=== PATIENT | female | born 1990 | race African-American/Black ===

== ENCOUNTER 2021-07-06 06:29 | Emergency (ER) | payer MEDICAID, OTHER ==
[~2021-07-06] VITALS: Ht 180.3 cm; Wt 146.0 kg
[2021-07-06 06:36] VITALS: BP 146/94
[2021-07-06] MEDS ORDERED: MAGNESIUM/ALUMINUM HYDROXIDE/SIMETHICONE 30ML UDC PO STA (09:04)
[2021-07-06] MEDS ORDERED: METOCLOPRAMIDE HCL 10MG/2ML VIAL IV STA (09:04)
[2021-07-06] MEDS ORDERED: FAMOTIDINE 20MG/2ML VIAL IV STA (09:04)
[2021-07-06] MEDS ORDERED: SODIUM CHLORIDE 0.9% 1,000 ML IV ONE (09:15)
[2021-07-06 09:55] LABS: HEMATOCRIT. 33.8 % (36.0-48.0); HEMOGLOBIN. 11.3 g/dL (12.0-16.0); MEAN CORPUSCULAR HEMOGLOBIN 27.8 pg (28.0-32.0); MEAN CORPUSCULAR VOLUME 83.2 fL (81.0-99.0); MEAN PLATELET VOLUME 8.3 fl (7.4-10.4); PLATELET 358 x1000/uL (130-400); RED BLOOD CELL COUNT 4.05 mill/uL (4.2-5.4); RED CELL DISTRIBUTION WIDTH 14.5 % (11.6-14.6)
[2021-07-06 09:56] LABS: CHLORIDE 109 mEq/L (98-107)
[2021-07-06 10:00] LABS: CLARITY URINE TURBID (CLEAR); COLOR URINE DK YELLOW (YELLOW); KETONES URINE 4+ (NEGATIVE); LEUKOCYTE ESTERASE URINE 1+ (NEGATIVE); NITRITE URINE NEGATIVE (NEGATIVE); OCCULT BLOOD URINE NEGATIVE (NEGATIVE); PROTEIN URINE 2+ (NEGATIVE); SPECIFIC GRAVITY URINE 1.034 (1.005-1.030); UROBILINOGEN URINE 0.2 E.U./dL (0.2-1.0)
[2021-07-06 10:02] LABS: INR 1.1; PROTHROMBIN TIME 11.7 sec (9.6-11.0)
[2021-07-06 10:39] LABS: PLATELET ESTIMATE NORMAL
[2021-07-06] MEDS ORDERED: DOXY1TAB3 MT (11:39)
== END 2021-07-06 12:09 | disposition home or self-care (01) ==
LOC: ER 06:29
DX: O21.0 Mild hyperemesis gravidarum (principal); O26.891 Other specified pregnancy related conditions, first trimester; R10.13 Epigastric pain; Z3A.08 8 weeks gestation of pregnancy
CPT/HCPCS: 36415; 76801; 76817; 80053; 81003; 81025; 83690; 85025; 85610; 96361; 96374; 96375; 99284; J2765; J3490; J7030

== ENCOUNTER 2021-07-09 08:04 | Emergency (ER) | payer MEDICAID ==
[~2021-07-09] VITALS: Ht 180.3 cm; Wt 136.0 kg
[~2021-07-09 08:04] MED LIST: DOXY1TAB3 MT
[2021-07-09] MEDS ORDERED: ONDANSETRON HCL 4MG/2ML INJ IV ONE (08:30)
[2021-07-09] MEDS ORDERED: SODIUM CHLORIDE 0.9% 1,000 ML IV ONE (08:30)
[2021-07-09 08:50] LABS: BASOPHILS % 0.3 % (0.0-2.0); EOSINOPHILS % 0.4 % (0.0-5.0); HEMATOCRIT. 35.4 % (36.0-48.0); HEMOGLOBIN. 11.9 g/dL (12.0-16.0); MEAN CORPUSCULAR HEMOGLOBIN 27.8 pg (28.0-32.0); MEAN CORPUSCULAR VOLUME 82.8 fL (81.0-99.0); MEAN PLATELET VOLUME 8.2 fl (7.4-10.4); MONOCYTES % 6.3 % (2.0-8.0); PLATELET 312 x1000/uL (130-400); RED BLOOD CELL COUNT 4.28 mill/uL (4.2-5.4)
[2021-07-09 08:56] LABS: CHLORIDE 103 mEq/L (98-107)
[2021-07-09] MEDS ORDERED: POTASSIUM CHLORIDE 20MEQ TABLET SR PO ONE (09:15)
[2021-07-09 09:29] LABS: B-HCG QUANTITATIVE 94479 mIU/mL (<3)
[2021-07-09 10:28] VITALS: BP 135/89
[2021-07-09] MEDS ORDERED: METOCLOPRAMIDE HCL 10MG/2ML VIAL IV ONE (10:45)
[2021-07-09] MEDS ORDERED: ONDA4TAB11 PO (10:46)
== END 2021-07-09 11:35 | disposition home or self-care (01) ==
LOC: ER 08:04
DX: O21.1 Hyperemesis gravidarum with metabolic disturbance (principal); O26.891 Other specified pregnancy related conditions, first trimester; R03.0 Elevated blood-pressure reading, without diagnosis of hypertension; Z3A.09 9 weeks gestation of pregnancy
CPT/HCPCS: 36415; 76801; 76817; 80053; 84702; 85025; 86850; 86900; 86901; 96361; 96374; 96375; 99284; J2405; J2765; J7030

== ENCOUNTER 2021-07-24 19:08 | Emergency (ER) | payer MEDICAID ==
[~2021-07-24] VITALS: Ht 180.3 cm; Wt 146.2 kg
[~2021-07-24 19:08] MED LIST changes: +ONDA4TAB11 PO
[2021-07-24] MEDS ORDERED: ONDANSETRON HCL 4MG/2ML INJ IV STA (20:41)
[2021-07-24] MEDS ORDERED: METOCLOPRAMIDE HCL 10MG/2ML VIAL IV STA (20:41)
[2021-07-24] MEDS ORDERED: SODIUM CHLORIDE 0.9% 1,000 ML IV ONE (20:45)
[2021-07-24 21:26] LABS: BASOPHILS % 0.4 % (0.0-2.0); EOSINOPHILS % 0.7 % (0.0-5.0); HEMATOCRIT. 35.8 % (36.0-48.0); HEMOGLOBIN. 12.1 g/dL (12.0-16.0); MEAN CORPUSCULAR HEMOGLOBIN 28.5 pg (28.0-32.0); MEAN CORPUSCULAR VOLUME 84.1 fL (81.0-99.0); MEAN PLATELET VOLUME 7.7 fl (7.4-10.4); MONOCYTES % 9.6 % (2.0-8.0); NEUTROPHILS % 72.3 % (40.0-76.0); PLATELET 329 x1000/uL (130-400); RED BLOOD CELL COUNT 4.25 mill/uL (4.2-5.4); RED CELL DISTRIBUTION WIDTH 14.2 % (11.6-14.6)
[2021-07-24 21:29] LABS: CHLORIDE 107 mEq/L (98-107)
[2021-07-24 22:52] LABS: CLARITY URINE CLOUDY (CLEAR); COLOR URINE DARK YELLOW (YELLOW); KETONES URINE 4+ (NEGATIVE); LEUKOCYTE ESTERASE URINE 1+ (NEGATIVE); NITRITE URINE POSITIVE (NEGATIVE); OCCULT BLOOD URINE NEGATIVE (NEGATIVE); PH URINE 5.5 (4.5-8.0); PROTEIN URINE 2+ (NEGATIVE); SPECIFIC GRAVITY URINE 1.029 (1.005-1.030)
[2021-07-24] MEDS ORDERED: DOXY1TAB3 MT (22:58)
[2021-07-24] MEDS ORDERED: ONDA4TAB11 PO (22:58)
[2021-07-24] MEDS ORDERED: CEPHALEXIN 250MG CAPSULE PO ONE (23:00)
[2021-07-24] MEDS ORDERED: CEPH500C2 MT (23:01)
[2021-07-24 23:20] VITALS: BP 135/86
== END 2021-07-24 23:32 | disposition home or self-care (01) ==
LOC: ER 19:08
DX: O21.0 Mild hyperemesis gravidarum (principal); Z3A.12 12 weeks gestation of pregnancy
CPT/HCPCS: 36415; 80053; 81003; 83690; 85025; 87077; 87086; 87186; 93005; 96361; 96374; 96375; 99284; J2405; J2765; J7030

== ENCOUNTER 2021-08-15 08:43 | Emergency (ER) | payer MEDICAID ==
[~2021-08-15] VITALS: Ht 180.3 cm; Wt 136.0 kg
[~2021-08-15 08:43] MED LIST changes: +CEPH500C2 MT
[2021-08-15] MEDS ORDERED: METOCLOPRAMIDE HCL 10MG/2ML VIAL IV ONE (10:45)
[2021-08-15] MEDS ORDERED: SODIUM CHLORIDE 0.9% 1,000 ML IV ONE (10:45)
[2021-08-15 11:05] LABS: HEMATOCRIT. 35.2 % (36.0-48.0); HEMOGLOBIN. 11.6 g/dL (12.0-16.0); MEAN CORPUSCULAR HEMOGLOBIN 28.5 pg (28.0-32.0); MEAN CORPUSCULAR VOLUME 86.3 fL (81.0-99.0); MEAN PLATELET VOLUME 7.4 fl (7.4-10.4); PLATELET 300 x1000/uL (130-400); RED BLOOD CELL COUNT 4.08 mill/uL (4.2-5.4); RED CELL DISTRIBUTION WIDTH 14.2 % (11.6-14.6)
[2021-08-15 11:13] LABS: CHLORIDE 107 mEq/L (98-107)
[2021-08-15 11:25] LABS: PLATELET ESTIMATE NORMAL
[2021-08-15 11:30] LABS: CLARITY URINE CLEAR (CLEAR); COLOR URINE YELLOW (YELLOW); KETONES URINE 4+ (NEGATIVE); LEUKOCYTE ESTERASE URINE NEGATIVE (NEGATIVE); NITRITE URINE NEGATIVE (NEGATIVE); OCCULT BLOOD URINE NEGATIVE (NEGATIVE); PH URINE 5.5 (4.5-8.0); PROTEIN URINE 1+ (NEGATIVE); SPECIFIC GRAVITY URINE 1.033 (1.005-1.030)
[2021-08-15 11:57] LABS: *AMPHETAMINES SCREEN URINE NEGATIVE (NEGATIVE); *BARBITURATES SCREEN URINE NEGATIVE (NEGATIVE); *BENZODIAZEPINES SCREEN URINE NEGATIVE (NEGATIVE); *COCAINE SCREEN URINE NEGATIVE (NEGATIVE); METHADONE URINE SCREEN NEGATIVE (NEGATIVE); OPIATES URINE SCREEN NEGATIVE (NEGATIVE)
[2021-08-15 11:58] LABS: PHENCYCLIDINE URINE SCREEN NEGATIVE (NEGATIVE)
[2021-08-15 12:05] LABS: B-HCG QUANTITATIVE 25029 mIU/mL (<3)
[2021-08-15 12:22] LABS: CANNABINOID URINE SCREEN PRESUMTIVE POSITIVE (NEGATIVE)
[2021-08-15] MEDS ORDERED: CEPH500C2 MT ×2 (13:14→15:48)
[2021-08-15] MEDS ORDERED: METO-293 MT (13:14)
[2021-08-15] MEDS ORDERED: CEPHALEXIN 250MG CAPSULE PO NR (13:15)
[2021-08-15] MEDS ORDERED: PROCHLORPERAZINE 10MG/2ML VIAL IM ONE (14:15)
[2021-08-15] MEDS ORDERED: ONDANSETRON HCL 4MG/2ML INJ IV ONE (14:45)
[2021-08-15] MEDS ORDERED: ONDA4TAB11 PO (15:47)
[2021-08-15 15:57] VITALS: BP 136/92
== END 2021-08-15 15:58 | disposition home or self-care (01) ==
LOC: ER 08:43
DX: O26.892 Other specified pregnancy related conditions, second trimester (principal); R11.2 Nausea with vomiting, unspecified; R82.71 Bacteriuria; O99.322 Drug use complicating pregnancy, second trimester; F12.90 Cannabis use, unspecified, uncomplicated; E86.0 Dehydration; R00.0 Tachycardia, unspecified; Z3A.16 16 weeks gestation of pregnancy
CPT/HCPCS: 36415; 76805; 80053; 80305; 81003; 81025; 84702; 85025; 86850; 86900; 86901; 93005; 96374; 96375; 99285; J2405; J2765; J7030; J0780

== ENCOUNTER 2024-07-02 06:41 | Emergency (ER) | payer MEDICAID ==
[~2024-07-02] VITALS: Ht 180.3 cm; Wt 137.0 kg
[~2024-07-02 06:41] MED LIST changes: +ONDA-239 PO; -ONDA4TAB11 PO
[2024-07-02 06:55] VITALS: O2SAT 100
[2024-07-02 07:24] LABS: BASOPHILS % 0.4 % (0.0-2.0); EOSINOPHILS % 0.4 % (0.0-5.0); HEMATOCRIT. 36.2 % (36.0-48.0); LYMPHOCYTES % 19.2 % (20.0-50.0); MEAN CORPUSCULAR HGB CONC 33.2 g/dL (31.0-37.0); MEAN CORPUSCULAR VOLUME 84.4 fL (81.0-99.0); MEAN PLATELET VOLUME 7.6 fl (7.4-10.4); MONOCYTES % 8.2 % (2.0-8.0); NEUTROPHILS % 71.8 % (40.0-76.0); PLATELET 349 x1000/uL (130-400); RED BLOOD CELL COUNT 4.29 mill/uL (4.2-5.4)
[2024-07-02] MEDS ORDERED: DICYCLOMINE 10 MG/5 ML ORAL SYR PO STA (07:28)
[2024-07-02 07:32] LABS: CHLORIDE 102 mEq/L (98-107); POTASSIUM 2.9 mEq/L (3.5-5.1); SODIUM 136 mEq/L (136-145)
[2024-07-02 07:33] LABS: CARBON DIOXIDE 25 mEq/L (21-32)
[2024-07-02 07:34] LABS: CALCIUM 9.7 mg/dL (8.7-10.4)
[2024-07-02 07:38] LABS: CREATININE 0.9 mg/dL (0.6-1.0); GLUCOSE 103 mg/dL (70-105); UREA NITROGEN BLOOD 9 mg/dL (9-23)
[2024-07-02 07:40] LABS: ALANINE AMINOTRANSFERASE 21 IU/L (10-49); ALBUMIN 4.7 g/dL (3.2-4.8); ASPARTATE AMINOTRANSFERASE 33 IU/L (<34)
[2024-07-02 07:41] LABS: BILIRUBIN DIRECT 0.2 mg/dL (<=3.0); BILIRUBIN TOTAL 0.5 mg/dL (0.1-1.0); PROTEIN TOTAL 7.6 g/dL (6.0-8.3)
[2024-07-02] MEDS: MAGNESIUM/ALUMINUM HYDROXIDE/SIMETHICONE 30ML UDC PO STA (08:10)
[2024-07-02] MEDS: DICYCLOMINE HCL 10MG CAPSULE PO STA (08:10)
[2024-07-02] MEDS: SODIUM CHLORIDE 0.9% 1,000 ML IV ONE (08:10)
[2024-07-02] MEDS: ONDANSETRON HCL 4MG/2ML INJ IV STA (08:19)
[2024-07-02 08:30] LABS: CLARITY URINE CLEAR (CLEAR); COLOR URINE DARK YELLOW (YELLOW); GLUCOSE URINE NEGATIVE (NEGATIVE); KETONES URINE 1+ (NEGATIVE); LEUKOCYTE ESTERASE URINE TRACE (NEGATIVE); NITRITE URINE NEGATIVE (NEGATIVE); OCCULT BLOOD URINE NEGATIVE (NEGATIVE); PH URINE 7.5 (4.5-8.0); PROTEIN URINE TRACE (NEGATIVE); SPECIFIC GRAVITY URINE 1.026 (1.005-1.030)
[2024-07-02 08:46] LABS: BACTERIA URINE NONE SEEN; MUCUS URINE 1+ /lpf (< = 2+); RBC URINE 0-2 /hpf (0-2); SQUAMOUS EPITHELIAL CELL URINE 1+ /lpf (RARE/1+); WBC URINE 0-2 /hpf (0-2); YEAST URINE NONE SEEN
[2024-07-02] MEDS ORDERED: ONDA4TAB50 MT (09:27)
[2024-07-02] MEDS: POTASSIUM CHLORIDE 20MEQ/PACKET PO ONE (09:56)
[2024-07-02] MEDS: KETOROLAC 15MG/ML VIAL IV ONE (10:00)
[2024-07-02 10:01] VITALS: BP 135/88; PULSE 98; RESP 20; TEMP 36.89184; O2SAT 100
== END 2024-07-02 10:01 | disposition home or self-care (01) ==
LOC: ER 06:41
DX: R10.13 Epigastric pain (principal); R11.2 Nausea with vomiting, unspecified; Z79.899 Other long term (current) drug therapy
CPT/HCPCS: 80076; 80048; 81003; 81025; 85025; 36415; 74176; 96361; 96374; 99285; J2405; J7030; Z7610